=== PATIENT | male | born 1945 | race Caucasian/White ===

== ENCOUNTER 2016-08-08 07:44 | Day surgery (SDC) | payer MEDICARE, OTHER ==
[2016-07-30 08:24] VITALS: BMI 25.1
[2016-08-08] MEDS ORDERED: Gentamicin 160 MG in Sodium Chloride 0.9% 100 ML IVPB ONE (10:00)
[2016-08-08] MEDS ORDERED: cefTRIAXone IV 1 gm in Dextros 50 ML IVPB ONE (10:12)
[2016-08-08] MEDS ORDERED: Midazolam 2 MG/2 ML VIAL ONE (10:14)
[2016-08-08] MEDS ORDERED: Propofol 10 mg/ml Inj (20 ML) ONE (10:14)
[2016-08-08] MEDS ORDERED: Lactated Ringer's 1,000 ML IV ONE (10:24)
[2016-08-08] MEDS: Lidocaine 2% Jelly (Uro-Jet) ONE ×2 (10:27→10:30)
--- NOTE | 2016-08-08 11:07 | OP ---
PROCEDURE DATE: 08/08/2016 PREOPERATIVE DIAGNOSES: Elevated PSA 9.5. The 4K score was 42%. POSTOPERATIVE DIAGNOSIS: Elevated PSA 9.5. PROCEDURE: Transrectal ultrasound diagnostic, transrectal ultrasound guidance, and prostatic biopsy. SURGEON: Israel Alexander MD. DESCRIPTION OF PROCEDURE: The patient brought to the operating room. He confirmed he did not take a ny aspirin or NSAIDs for over a week prior to the procedure. He was premedicated with 1 gram of Roce phin and 160 mg of gentamicin IV piggyback, prepped and draped in the usual fashion in lithotomy posi tion and placed under anesthesia. The rectum was cleansed with Betadine and then we introduced the B and K transducer, examined the prostate and found it had at 98 cm volume, but there were no focal ab normalities noted. At this point, we proceeded with prostate biopsy. Six sextants were used to divi de the prostate and 2 prostatic core biopsies were taken from each sextant for a total of 12. We the n maintained the transducer in the rectum for 5 minutes to promote hemostasis and upon withdrawal, th ere was no significant bleeding observed. The patient tolerated the procedure well. Israel Alexander MD cc: 66 TT: 08/08/2016 11:05:42 tn
[2016-08-08 12:58] VITALS: BP 140/80; PULSE 77; RESP 20; TEMP 98; O2SAT 98
== END 2016-08-08 12:55 | disposition home or self-care (01) ==
LOC: C.SDS 07:44
PROVIDERS: ATTEND Urology
DX: C61 Malignant neoplasm of prostate (principal)
CPT/HCPCS: 55700; 76872; 76942; 88305; 88342; J0696; J1580; J7120